=== PATIENT | male | born 1955 | race Caucasian/White ===

== ENCOUNTER 2025-04-10 09:29 | Emergency (ER) | payer MEDICARE, OTHER, SELFPAY ==
--- OUTSIDE RECORDS SUMMARY | 2025-04-03 09:20 | XMS_ITS ---
Author Organization [facility] Address [address] [place] [address] Care Team Providers Care Regional [facility] Manager Name Role Phone Greg Will Primary Care Provider Allergies Allergen (clinical drug ingredient) Drug/Non Drug Allergy documented on EMR Reaction Allergy Type Onset Date Status Substance with 3-geckdto-3-methylgluta ryl-coenzyme A reductase inhibitor mechanism of action (substance) Statins Unknown Drug Allergy Active REASON FOR VISIT POSSIBLE PINCHED NERVE IN LEG Medications Medication SIG (Take, Route, Frequency, Duration) Notes Start Date End Date Status Celecoxib 200 MG Capsule 1 capsule as ne eded Orally BID; Duration: 30 days 04/03/2025 Active Vitamin D3 250 MCG (62344 UT) Capsule 1 capsule Orally Once a day Active traMADol HCl 100 MG Tablet 1 tablet as n eeded Orally every 8 hrs; Duration: 90 days 03/21/2025 Active Losartan Potassium 50 MG Tablet 1 tablet Orally Once a day; Duration: 90 days Active Clopidogrel Bisulfate 75 MG Tablet 1 tablet Orally Once a day; Duration: 90 days Active Torsemide 20 MG Tablet 1 tablet Orally O nce a day Active Carvedilol 25 MG Tablet 1 tablet with fo od Orally Twice a day Active Tamsulosin HCl 0.4 MG Capsule 1 capsule Orally Once a day Active Walker - Miscellaneous as directed; Duration: 99 days Bariatric walker with seat MIRIAN 99 months 03/11/2025 Active predniSONE 20 MG Tablet 1 tablet with fo od or milk Orally Once a day; Duration: 7 days 04/03/2025 Active Loratadine 10 MG Tablet 1 tablet Orally Once a day Active Pregabalin 150 MG Capsule 1 capsule Oral ly 3 times a day Active Jardiance 10 MG Tablet 1 tablet Orally O nce a day Active oxyCODONE-Acetaminophen 5-325 MG Tablet 1 tablet as needed Orally every 6 hrs Active tiZANidine HCl 2 MG Tablet 1 tablet at b edtime as needed Orally Every 8 hours Active Dulcolax 5 MG Tablet Delayed Release 1 tablet as needed Orally Once a day Active Aspirin 81 MG Tablet Delayed Release 1 tablet Orally Once a day Active Social History Tobacco Use: Social History Observation Description Date Details (start date - stop date) Never Smoker NA - NA Social History Tobacco Use: Social Info Question Answer Notes Tobacco Control (Standard) Tobacco use: Nonsmoker Section Notes: CIME Dep/tob - 03/11/25 Vital Signs Temperature 97.1 degrees Fahrenheit 04/03/20 25 Blood pressure systolic 140 mm Hg 04/03/20 25 Blood pressure diastolic 84 mm Hg 025 Heart Rate 88 /min 04/03/2025 Height 73 in 04/03/2025 Weight 350 lbs 04/03/2025 BMI 46.17 kg/m2 04/03/2025 Oximetry 95 % 04/03/2025 Height-cm 185.42 cm 04/03/2025 Weight-kg 158.76 kg 04/03/2025 Encounters Encounter Location Date Provider Diagnosis [facility] [address] [id number] 04/03/2025 Greg Will Low back pain M54.50 Assessments Encounter Date Diagnosis (ICD Code) Assessment Notes Treatment Notes Treatment Clinical Notes Section Notes 04/03/2025 Low back pain (ICD-10 - M54.50) Plan Of Treatment Medication Medication Name Sig Start Date Stop Date Notes Celecoxib 200 MG Capsule 1 capsule as ne eded Orally BID; Duration: 30 days 04/03/2025 predniSONE 20 MG Tablet 1 tablet with fo od or milk Orally Once a day; Duration: 7 days 04/03/2025 Next Appt Details Follow Up: as [facility], Reason: Provider Name:Greg Will, 05/21/2025 09:20:00 AM, [address], [phone], History and Physical Notes * Examination Category Sub-Category Detail Notes Category Not es Examination GENERAL APPEARANCE: Awake/alert. No appar ent distress HEART: Regular rate and rhy thm without rubs, murmurs, or gallops. PMI nondisplaced ABDOMEN: Soft, nontender, non distended with active bowel sounds X4. No HSM or masses LUNGS: Clear to auscultatio n without rales, rhonchi, wheezing, tachypnea or air hunger Progress Notes * MOIRA AMES DDOB: [birth year] (69 yo M)Acc No.[id number]:04/03/2025 Progress Notes Patient: MOIRA GALLEGOS Provider: Teetee Will MD :1955 A ge:69 Y S ex:Male Date:04/03/2025 Address:[address] [place], [place] [phone] Check Out:03:51 PM ARMED GUARD Subjective: * Chief Complaints: * P OSSIBLE PINCHED NERVE IN LEG * HPI: P atient Complaints: Patient here for follow up - fell Tuesday hit legs and head - landed on stomach - thinks he may have a pinched nerve in his Right leg - goes numb - feels like there is a heating pad on his leg at all times. This has been going on since he left [place]. * ROS: G eneral/Constitutional: Patient denies f atigue , fever , night sweats. ? H ematology: Patient denies e asy bruising , bleeding problems , recent transfusion. R espiratory: Patient denies c ough , shortness of breath , wheezing.? C ardiovascular: Patient denies c hest pain , irregular heartbeat , swelling in hands/feet. G astrointestinal: Patient denies a bdominal pain, bloating , constipation , diarrhea , heartburn , blood in stool , nausea , vomiting. G enitourinary: Patient denies p ainful urination , blood in the urine , difficulty urinating. E NT: Patient denies e ar pain , nosebleed, runny nose, s ore throat. M usculoskeletal: Patient denies a rthritis\arthralgia , back pain , joint stiffness , muscle aches. S kin: Patient denies s kin lesion(s) , rash , acne. ? N eurologic: Patient denies d izziness , fainting , headache , memory loss , seizures. P sychiatric: Patient denies a nxiety , depressed mood , difficulty sleeping , suicidal thoughts. f ollow up - leg pain. * Medical History: Sleep Apnea Hypertension Coronary Artery Disease Heart problems Dysliphdemia Statin intolerance Stroke Medical History Verified * Surgical History: stent left knee replacement right knee replacement carpal tunnel release both Ulnar release surgery R ankle Surgical History verified. * Hospitalization/Major Diagno stic Procedure: No Hospitalization Documented. Hospitalization Verified. * Family History: F ather: . M other: , hypertension, chronic obstructive pulmonary disease.?Family History Verified.. * Social History: T obacco Use: T obacco Control (Standard) T obacco use: N onsmoker S ocial History Verified. C WISAM Dep/tob - 03/11/25. * Medications: T akingVitamin D3 250 MCG (74326 UT) Capsule 1 capsule Orally Once a day Dulcolax 5 MG Tablet Delayed Release 1 tablet as needed Orally Once a day Aspirin 81 MG Tablet Delayed Release 1 tablet Orally Once a day Loratadine 10 MG Tablet 1 tablet Orally Once a day Pregabalin 150 MG Capsule 1 capsule Orally 3 times a day Jardiance 10 MG Tablet 1 tablet Orally Once a day oxyCODONE-Acetaminophen 5-325 MG Tablet 1 tablet as needed Orally every 6 hrs tiZANidine HCl 2 MG Tablet 1 tablet at bedtime as needed Orally Every 8 hours Torsemide 20 MG Tablet 1 tablet Orally Once a day Carvedilol 25 MG Tablet 1 tablet with food Orally Twice a day Tamsulosin HCl 0.4 MG Capsule 1 capsule Orally Once a day Walker - Miscellaneous as directed Bariatric walker with seat MIRIAN 99 months, Notes: Bariatric walker with seattraMADol HCl 100 MG Tablet 1 tablet as needed Orally every 8 hrs Losartan Potassium 50 MG Tablet 1 tablet Orally Once a day Clopidogrel Bisulfate 75 MG Tablet 1 tablet Orally Once a day Medication List reviewed and reconciled with the patientTaking Vitamin D3 250 MCG (22883 UT) Capsule 1 capsule Orally Once a day Taking Dulcolax 5 MG Tablet Delayed Release 1 tablet as needed Orally Once a day Taking Aspirin 81 MG Tablet Delayed Release 1 tablet Orally Once a day Taking Loratadine 10 MG Tablet 1 tablet Orally Once a day Taking Pregabalin 150 MG Capsule 1 capsule Orally 3 times a day Taking Jardiance 10 MG Tablet 1 tablet Orally Once a day Taking oxyCODONE-Acetaminophen 5-325 MG Tablet 1 tablet as needed Orally every 6 hrs Taking tiZANidine HCl 2 MG Tablet 1 tablet at bedtime as needed Orally Every 8 hours Taking Torsemide 20 MG Tablet 1 tablet Orally Once a day Taking Carvedilol 25 MG Tablet 1 tablet with food Orally Twice a day Taking Tamsulosin HCl 0.4 MG Capsule 1 capsule Orally Once a day Taking Walker - Miscellaneous as directed Bariatric walker with seat MIRIAN 99 months, Notes: Bariatric walker with seatTaking traMADol HCl 100 MG Tablet 1 tablet as needed Orally every 8 hrs Taking Losartan Potassium 50 MG Tablet 1 tablet Orally Once a day Taking Clopidogrel Bisulfate 75 MG Tablet 1 tablet Orally Once a day Medication List reviewed and reconciled with the patient * Allergies: S tatinsyesAllergies Verified. Objective: * Vitals: H t: 73 in, Wt:350lbs, Wt-k.76 kg, BMI:46.17Index, Temp:97.1F, BP:140/84mm Hg, HR:88/min, Oxygen sat %:95%, O2 Source: RA, Pain scale: 5 1-10, Ht-cm: 185.42 cm. * Examination: E xamination: GENERAL APPEARANCE: A wake/alert. No apparent distress.? HEART: R egular rate and rhythm without rubs, murmurs, or gallops. PMI nondisplaced. LUNGS: C lear to auscultation without rales, rhonchi, wheezing, tachypnea or air hunger. ABDOMEN: S oft, nontender, nondistended with active bowel sounds X4. No HSM or masses. Assessment: * Assessment: 1. L ow back pain - M54.50 (Primary) Plan: * Treatment: * Procedure Codes: 3 077F SYST BP = 140 MM HG6 [id number] DIAST BP 80-89 MM HG * Preventive Medicine: Fall Risk Assessment: F all Risk Assessment Fall Risk Assessment O ne fall without injury in the past year 03/07/25 Screenings: C ARE FOR OLDER ADULTS Function Status Assessment date 1 Tomás Kingsley OLORECTAL CANCER SCREENING: Date of last colonoscopy 06/18/2024 Date scheduled: 06/18/2024 [facility] D EPRESSION SCREENING: Date of most recent screenin T OBACCO USE SCREENING: The patient smoked: n o tobacco products V ACCINATIONS: Influenza vaccinations: h ave been completed yearly 02/2025 [place] * Follow Up: felicia byrnes Billing Information: * Visit Code: 63890 Office Visit, Est Pt., Level 4. * Procedure Codes: 3077F SYST BP = 140 MM HG6 IT. 3079F DIAST BP 80-89 MM HG. Care Plan Details* * D GUARD Sign off status: Completed true * Provider: Teetee Will MD Date: 06/03/2024 Generated for Liza newton/Rissa/Vu on: 06/10/2024 09:43 AM ARMED GUARD
--- OUTSIDE RECORDS SUMMARY | 2025-04-08 10:15 | XMS_ITS | Encounter Summary ---
Author Organization [facility] Address [address] [place] [address] Care Team Providers Care Line Prep Cook Name Role Phone Unavailable Primary Care Provider Unavailabl e Reason for Visit * Reason Comments Consult Mobitz type 2 * Eval and Treat (Routine) - Closed Specialty Diagnoses / Procedures Referred By Contcasie t Referred To Contact Advanced Heart Failure & Transplant Cardiology / Cardiology Diagnoses Mobitz type 2 second degree atrioventricular block Presence of leadless cardiac pacemaker Chronic diastolic heart failure (CMS/HCC) Procedures AR OFFICE/OUTPATIENT ESTABLISHED MOD MDM 30 MIN AR OFFICE/OUTPATIENT NEW MODERATE MDM 45 MINUTES Papo Olivares MD [address] [place] [phone] Phone: tel: fax: Hudson Kraft MD [address] [place] [phone] Phone: tel:[phone] fax:[phone] Referral ID Status Reason Start Date Expiration Date Visits Re quested Visits Authorized [id number] Closed 03/12/2025 03/12/2026 1 1 Encounter Details Date Type Department Care Team (Late st Contact Info) Description 04/08/2025 10:15 AM SPACE TECHNOLOGIST Office Visit [facility] [address] [place] [phone] Papo Olivares MD [address] [place] [phone] Hudson Kraft MD [address] [facility] [address] [place] [address] Chronic diastolic heart failure (CMS/HCC) (Primary Dx) Social History Tobacco Use Types Packs/Day Years Used Date Smoking Tobacco: Never Sex and Gender Information Value Date Recorded Sex Assigned at Not on file Legal Sex Male 11:30 AM CDT Gender Identity Not on file Sexual Orientation Not on file documented as of this encounter Last Filed Vital Signs Vital Sign Reading Time Taken Comments Blood Pressure 104/70 04/08/2025 10:07 AM SPACE TECHNOLOGIST Pulse 65 04/08/2025 10:07 AM SPACE TECHNOLOGIST Temperature - - Respiratory Rate - - Oxygen Saturation 95% 04/08/2025 10:07 AM SPACE TECHNOLOGIST Inhaled Oxygen Concentration - - Weight 156 kg (344 lb) 04/08/2025 10:07 AM SPACE TECHNOLOGIST Height 188 cm (6' 2 ) 04/08/2025 10:07 AM SPACE TECHNOLOGIST Body Mass Index 44.17 04/08/2025 10:07 AM SPACE TECHNOLOGIST documented in this encounter Progress Notes * Hudson Kraft MD - 04/08/2025 10:15 AM CST Requesting Physician: Dr. Olivares Chief Complaint/Reason for Consultation: diastolic heart failure and cardiomems History: Dejan Weeks is a 69 y.o. patient with past medical history most significant for: - Diastolic heart failure and has cardiomems in feb 2025 - Morbid obesity down from 450 lbs to 344 lbs - Heart block status post leadless pacemaker - Dyslipidemia - CVA in mar 2024 - PCI X1 in apr 2024 - GUERRERO on BIPAP and on 1.5 L oxygen at night Recently moved He was seen in [facility] Had micra pacemaker implanted Also had abnormal stress test in 2023 Had a cath in 2023 and PCI in apr 2024 Walking with a walker Has some exertional dyspnea NYHA II Gets weak in the legs Walks with a walker Has been doing well No LE edema Had right sided heart failure last year No tobacco Social alcohol No drugs Knee replacement X2 Carpel tunnel Ulner surgery Right ankle Says he needs hip replacement No past medical history on file. No past surgical history on file. Current Outpatient Medications Medication Sig Dispense Refill evolocumab (Repatha SureClick) 140 mg/mL Pen Injector Inject 140 mg by subcutaneous injection every2 weeks. aspirin (TRICIA) 81 mg Tablet Take 81 mg by mouth. bisacodyL (DULCOLAX) 5 mg Delayed Release tablet 1 tablet as needed Orally Once a day carvediloL (COREG) 25 mg tablet 25 mg 2 times daily with meals. Cholecalciferol, Vitamin D3, 250 mcg (10,000 unit) Capsule 1 Capsule. clopidogreL (PLAVIX) 75 mg Tablet Take 75 mg by mouth daily. doxazosin (CARDURA) 2 mg tablet Take 2 mg by mouth. empagliflozin (Jardiance) 10 mg tablet Take 10 mg by mouth daily. torsemide (DEMADEX) 20 mg tablet Take 20 mg by mouth daily. tiZANidine (ZANAFLEX) 2 mg Tablet 2 mg every 8 hours. tamsulosin (FLOMAX) 0.4 mg capsule 0.4 mg daily. losartan (COZAAR) 50 mg tablet Take 50 mg by mouth daily. pregabalin (LYRICA) 150 mg Capsule 150 mg every 8 hours. loratadine (CLARITIN) 10 mg tablet Take 10 mg by mouth daily. traMADoL 100 mg Tablet 100 mg. No current facility-administered medications for this visit. Allergies Allergen Reactions Atorvastatin Muscle Pain No family history on file. Social History Tobacco Use Smoking status: Never Smokeless tobacco: Not on file Substance Use Topics Alcohol use: Not on file Review of Systems: Review of systems completed. All systems negative except symptoms as noted in HPI Objective: BP 104/70 (BP Location: Left arm, Patient Position (BP): Sitting, BP Cuff Size: Large Adult) Pulse 65 Ht 6' 2 (1.88 m) Wt (!) 156 kg (344 lb) SpO2 95% BMI 44.17 kg/m?? Wt Readings from Last 3 Encounters: 04/08/25 (!) 156 kg (344 lb) 03/12/25 (!) 158.8 kg (350 lb) General appearance: NAD Skin: warm and dry Musculoskeletal: no obvious skeletal deformities Head: normocephalic, atraumatic Neck: supple, no jugular venous distension Lungs: clear to auscultation bilaterally Chest wall: no tenderness Heart: normal S1 and S2, without murmurs. Regular rhythm. Abdomen: soft Extremities: no edema Neurologic: grossly intact and non-focal Pulses: carotid pulses 2+ and symmetric. No carotid bruits. Assessment/Plan: This is a 69-year-old male patient with complex medical history including diastolic heart failure, right-sided heart failure, CAD, heart block status post Micra pacemaker, obesity, sleep apnea who ishere for evaluation and cardiac care CAD: Patient had an abnormal stress test in 2023 and subsequently had 1 stent placed in 2023 to theOM1 Mild disease in other territories Will get cath report On aspirin and Plavix and Repatha On beta-wilberto No anginal symptoms Continue current meds Diastolic heart failure: Has been treated for diastolic heart failure Has CardioMEMS in place Will set up with our heart failure clinic No evidence gross volume overload Continue current SGLT2 inhibitor and torsemide Recommend salt and fluid restriction Morbid obesity: Patient lost approximately 100 pounds Continue weight loss Continue exercise and healthy lifestyle History of right-sided heart failure : Likely related to morbid obesity and sleep apnea Had improved he suggests over time Continue weight loss Salt and fluid restriction Status post CardioMEMS for diastolic heart failure: Will set up in monitoring system Status post leadless pacemaker: Will follow-up with Dr. Olivares Preoperative risk assessment: Patient will be planned for orthopedic surgeries He appears to be compensated He has no anginal symptoms Had a stent last year Continue current meds He is moderate risk from cardiac standpoint Okay to proceed with surgery as planned Follow-up in 6 months Thank you for your consultation. Hudson Kraft MD 0:24 AM E TECHNOLOGIST E TECHNOLOGIST documented in this encounter Miscellaneous Notes * Addendum Note - Clarisa Velasco RN - 04/08/2025 10:58 AM CSTAddended by: CLARISA VELASCO on: 04/08/2025 10:58 AM Modules accepted: Orders E TECHNOLOGIST * Patient Instructions - Clarisa Velasco RN - 04/08/2025 9:58 AM CST Thank you for choosing [facility] to serve your cardiac needs. Kamilah Garcia NP, Clarisa RN and the rest of our [facility] Team seek toprovide you with the best possible care. We hope you are satisfied with your visit today. Please let us know how we can improve and better serve you on your next visit. Thank you for entrusting your care to us at [facility]. Kamilah Garcia LAST SAWYER, Clarisa folder operator number [phone], Please call with any questions or concerns. In an urgent situation thisnumber will be answered 24 hours a day. Also, you may receive a survey via text or phone call about your visit today. I encourage you to complete the survey. We would appreciate a rating of EXCELLENT for your visit today. If you do notfeel that you can give us EXCELLENT scores please let us know why so that we can better serve you in the future. Again, it was a pleasure visiting with you today. We look forward to seeing you again in the future. Central [phone] E TECHNOLOGIST documented in this encounter Plan of Treatment Upcoming Encounters Date Type Department Care Team (Late st Contact Info) Description 06/11/2025 8:00 AM SPACE TECHNOLOGIST Procedure visit [facility] [address] [place] [phone] Papo Olivares MD [address] [place] [phone] 10/02/2025 10:00 AM CDT Video Visit [facility] [address] [place] [phone] Hudson Kraft MD [address] [place] [phone] Kamilah Quintanilla FNP [address] [place] [phone] 03/25/2026 10:30 AM SPACE TECHNOLOGIST Office Visit [facility] [address] [place] [phone] Papo Olivares MD [address] [facility] [address] [place] [phone] documented as of this encounter Visit Diagnoses Diagnosis Chronic diastolic heart failure (CMS/HCC)- Primary Chronic diastolic heart failure documented in this encounter
[2025-04-10 09:32] VITALS: BP 132/86; PULSE 64; TEMP 36.7; O2SAT 95; BMI 43.6
--- OUTSIDE RECORDS SUMMARY | 2025-04-10 09:43 | XMS_ITS | Patient Health Record ---
Author Organization [facility] Address [address] [address] Care Team Providers Care White Sugar Supervisor Name Role Phone Greg Will Primary Care Provider Allergies Allergen (clinical drug ingredient) Drug/Non Drug Allergy documented on EMR Reaction Allergy Type Onset Date Status Substance with 8-acoqunm-9-methylgluta ryl-coenzyme A reductase inhibitor mechanism of action (substance) Statins Unknown Drug Allergy Active Reason For Referral Reason Gait trouble Diagnosis 1 Gait instability (R2 6.81) Referral Organization [facility] Referring Provider First Name Ash cortez Referring Provider Last Name Suman Referring Provider Speciality Internal M edicine Referred Provider GTS [facility] Referred Provider Specialty Physical The rapist General Notes Alba Owens 025 08:16:23 AM COACH CLEANER > PER FAX PT IS SCHEDULED 03/19, Alba Owens 03/19/2025 03:03:49 PM COACH CLEANER > PROGRESS NOTES IN REFERRAL FILE Referral Priority Routine Referral Appointment Date 03/19/2025 Reason Told he needs a hip replacement. Schedule in sale. Diagnosis 1 Right hip pain (M25. 551) Referring Provider First Name Ash cortez Referring Provider Last Name Suman Referring Provider Speciality Internal M edicine Referred Organization [facility] Referred Provider Khalif Goldsmith Referred Address [address] [facility],[place],[address], Referral Priority Routine Reason Told he needs a hip replacement. Schedule in [place]. Diagnosis 1 Right hip pain (M25. 551) Referral Organization [facility] Referring Provider First Name Ash cortez Referring Provider Last Name Suman Referring Provider Speciality Internal M edicine Referred Provider KHALIF GOLDSMITH Referred Provider Specialty Orthopedic S urgery General Notes MoiseFaina gaylerie 10:39:41 AM COACH CLEANER > faxed Dr Kalen Montez Suly puente Valerie 04/01/2025 01:30:56 PM COACH CLEANER > [facility] REFERRAL- NO APPT MADE YET Referral Priority Routine Medications Medication SIG (Take, Route, Frequency, Duration) Notes Start Date End Date Status Torsemide 20 MG Tablet 1 tablet Orally O nce a day Active Carvedilol 25 MG Tablet 1 tablet with fo od Orally Twice a day Active Celecoxib 200 MG Capsule 1 capsule as ne eded Orally BID; Duration: 30 days 04/03/2025 Active predniSONE 20 MG Tablet 1 tablet with fo od or milk Orally Once a day; Duration: 7 days 04/03/2025 Active Tamsulosin HCl 0.4 MG Capsule 1 capsule Orally Once a day Active Vitamin D3 250 MCG (26111 UT) Capsule 1 capsule Orally Once a day Active Walker - Miscellaneous as directed; Duration: 99 days Bariatric walker with seat MIRIAN 99 months 03/11/2025 Active Dulcolax 5 MG Tablet Delayed Release 1 tablet as needed Orally Once a day Active traMADol HCl 100 MG Tablet 1 tablet as n eeded Orally every 8 hrs; Duration: 90 days 03/21/2025 Active Aspirin 81 MG Tablet Delayed Release 1 tablet Orally Once a day Active Losartan Potassium 50 MG Tablet 1 tablet Orally Once a day; Duration: 90 days Active Loratadine 10 MG Tablet 1 tablet Orally Once a day Active Clopidogrel Bisulfate 75 MG Tablet 1 tablet Orally Once a day; Duration: 90 days Active Pregabalin 150 MG Capsule 1 capsule Oral ly 3 times a day Active Jardiance 10 MG Tablet 1 tablet Orally O nce a day Active oxyCODONE-Acetaminophen 5-325 MG Tablet 1 tablet as needed Orally every 6 hrs Active tiZANidine HCl 2 MG Tablet 1 tablet at b edtime as needed Orally Every 8 hours Active Immunizations Vaccine Route Administration Date Status Comme nts Flucelvax Trivalent, Syringe 0.5 mL, PF Unknown 03/25/2025 Administered Social History Tobacco Use: Social History Observation Description Date Details (start date - stop date) Never Smoker NA - NA Social History Depression Screening Social Info Question Answer Notes depression screening findings Findings Negative (0 -4) 03/11/25 PHQ-9 Little interest or p maryjane in doing things Not at all Feeling down, depressed, or hopeless Not at all Trouble falling or staying asleep, or sleeping t oo much More than half the days Feeling tired or having little energy More than half the days Poor appetite or overeating Not at all Feeling bad about yourself, or that you are a failure, or have let yourself or your family down Not at all Trouble concentrating on thi ngs, such as reading the newspaper or watching television Not at all Moving or speaking so slowly that other people could have noticed. Or the opposite ? being so fidgety or restless that you have been moving around a lot more than usual Not at all Thoughts that you would be b miguel off , or of hurting yourself in some way Not at all Total Score 4 Interpretation Minimal Depression Comprehensive Health Assessm ent Social Info Question Answer Notes *Social Determinants of Health Has lack of transportation kept you from medical appointments, meetings, work or from getting things needed for daily living? No Recently, have you worried t hat your food would run out before you got money to buy more? No Do you feel physically and emotionally safe wher e you currently live? Yes Are you worried about losing your housing? No Have you recently been ronny rned that your utilities would be turned off (electricity, gas, or water)? No Tobacco Use: Social Info Question Answer Notes Tobacco Control (Standard) Tobacco use: Nonsmoker Section Notes: CIME Dep/tob - 03/11/25 CIME Dep/tob - 03/11/25 CIME Dep/tob - 03/11/25 Problems Problem Type SNOMED Code ICD Code Onset Dates Problem Status W/U Status Risk Notes Problem Type 2 diabetes mellitus with other specified complication (E11.69) Active confirmed Problem Hyperlipidemia (55081311) Hyperlipidemia, unspecified (E78.5) Active confirmed Problem Arthralgia of the pelvic region and thigh (308211312) Right hip pain (M25.551) Active confirmed Problem Multi vessel coronary artery disease (515668171) CAD, multiple vessel (I25.10) Active confirmed Problem Rotator cuff arthropathy of right shoulder (14778518574988792 ) Rotator cuff arthropathy of right shoulder (M12.811) Active confirmed Problem Statin not tolerated (634921004) Statin intolerance (Z78.9) Active confirmed Problem Abnormal gait (93681568) Gait instability (R26.81) Active confirmed Problem Obstructive sleep apnea syndrome (56363788) GUERRERO treated with BiPAP (G47.33) Active confirmed Vital Signs Heart Rate 88 /min 04/03/2025 Temperature 97.1 degrees Fahrenheit 04/03/2025 Height-cm 185.42 cm 04/03/2025 Oximetry 95 % 04/03/2025 Blood pressure diastolic 84 mm Hg 04/03/2025 Weight-kg 158.76 kg 04/03/2025 Height 73 in 04/03/2025 Blood pressure systolic 140 mm Hg 04/03/2025 Weight 350 lbs 04/03/2025 BMI 46.17 kg/m2 04/03/2025 Encounters Encounter Location Date Provider Diagnosis [facility] [address] [place] [phone] 04/03/2025 Greg Will Low back pain M54.50 [facility] [address] [address] 03/25/2025 Greg Will Right hip pain M25.551 ; Rotator cuff arthropathy of right shoulder M12.811 ; Chronic constipation with overflow K59.09 ; Colon cancer screening Z12.11 and GUERRERO treated with BiPAP G47.33 [facility] [address] [place] [phone] 03/11/2025 Greg Will Hyperlipidemia, unspecified E78.5 ; Gait instability R26.81 ; Statin intolerance Z78.9 ; CAD, multiple vessel I25.10 ; GUERRERO treated with BiPAP G47.33 and Depression screen Z13.31 [facility] [address] [address] 03/18/2025 Greg Will [facility] [address] [address] 03/13/2025 Greg Will [facility] [address] [phone] 03/22/2025 Greg Will Assessments Encounter Date Diagnosis (ICD Code) Assessment Notes Treatment Notes Treatment Clinical Notes Section Notes 03/11/2025 Hyperlipidemia, unspecified (ICD-10 - E78.5) 03/25/2025 Right hip pain (ICD-10 - M25.551) 03/25/2025 Rotator cuff arthropathy of right shoulder (ICD-10 - M12.811) 03/11/2025 Gait instability (ICD-10 - R26.81) Walker Pt is in need of: Standard Walker ____ Walker with Trunk Support ____ (add documentation for trunk support) Walker with Variable Wheel Resistance ____ (add documentation of severe neurologic disorder causing restricted use of one hand) Heavy Duty Walker____ (pt must weigh 300 lbs or more) Bariatric walker with seat The patient has a mobility limitation that significantly impairs their ability to participate in one or more mobility-related activities of daily living (MRADL) in the home, examples of MRADLs are toileting, feeding, dressing, grooming and bathing. The mobility limitation prevents the patient from completing the MRADL within a reasonable time frame. The patient is able to safely use the walker The functional mobility deficit can be sufficiently resolved with use of a walker. Length of Need: 99 months Additional information if needed: Patient also needs a Bariatric shower seat 04/03/2025 Low back pain (ICD-10 - M54.50) 03/25/2025 Chronic constipation with overflow (ICD-10 - K59.09) 03/11/2025 Statin intolerance (ICD-10 - Z78.9) 03/11/2025 CAD, multiple vessel (ICD-10 - I25.10) 03/25/2025 Colon cancer screening (ICD-10 - Z12.11) 03/25/2025 GUERRERO treated with BiPAP (ICD-10 - G47.33) 03/11/2025 GUERRERO treated with BiPAP (ICD-10 - G47.33) 03/11/2025 Depression screen (ICD-10 - Z13.31) Plan Of Treatment Pending Test Test Name Order Date Colonoscopy, Average Risk Screening-G012 1 03/25/2025 Next Appt Details Provider Name:Greg Will, 05/21/2025 09:20:00 AM, [address] [place] [address], [place], [phone], Insurance Providers Payer Name Payer Address Payer Phone Subscriber Number Group Number Insured Name Patient Relationship to Insured Coverage Start Date Coverage End Date [place] [address] [address] [place] [address] [phone] [id number] MOIRA AMES Self - patient is the insured Eder Medicare Supplement [address] [address] [place] [address] [id number] MOIRA AMES Self - patient is the insured Medications Administered Medication Instructions Date of Administration Dosage Notes BUPivacaine HCl 03/25/2025 1 mL DEPO-Medrol 03/25/2025 80 mg Medical (General) History Medical History History ICD Code Sleep Apnea hypertension Coronary Artery Disease Heart problems Dysliphdemia Statin intolerance Stroke Surgical History Surgery Date(Month/Year) stent left knee replacement right knee replacement carpal tunnel release both Ulnar release surgery R ankle
--- OUTSIDE RECORDS SUMMARY | 2025-04-10 09:43 | XMS_ITS | Clinical Summary ---
Author Organization [facility] Address [address] [place] [address] Phone Care Team Providers Care Tinsel Machine Operator Name Role Phone Unavailable Primary Care Provider Unavailabl e Allergies Active Allergy Reactions Criticality Noted Date Comments Atorvastatin Muscle Pain Low 03/12/2025 Medications aspirin (TRICIA) 81 mg Tablet Take 81 mg by mouth. 5 Active bisacodyL (DULCOLAX) 5 mg Delayed Release tablet 1 tablet as needed Orally Once a day Active carvediloL (COREG) 25 mg tablet 25 mg 2 times daily with meals. Active Cholecalcifero l, Vitamin D3, 250 mcg (10,000 unit) Capsule 1 Capsule. Active clopidogreL (PLAVIX) 75 mg Tablet Take 75 mg by mouth daily. Active doxazosin (CARDURA) 2 mg tablet Take 2 mg by mouth. 5 Active torsemide (DEMADEX) 20 mg tablet Take 20 mg by mouth daily. Active tiZANidine (ZANAFLEX) 2 mg Tablet 2 mg every 8 hours. Active tamsulosin (FLOMAX) 0.4 mg capsule 0.4 mg daily. 5 Active losartan (COZAAR) 50 mg tablet Take 50 mg by mouth daily. Active pregabalin (LYRICA) 150 mg Capsule 150 mg every 8 hours. 5 Active loratadine (CLARITIN) 10 mg tablet Take 10 mg by mouth daily. Active traMADoL 100 mg Tablet 100 mg. Active empagliflozin (Jardiance) 10 mg tablet Take 1 Tablet (10 mg) by mouth daily. 90 Tablet 3 5 Active evolocumab (Repatha SureClick) 140 mg/mL Pen Injector Inject 1 mL (140 mg) by subcutaneous injection every 2 weeks. 6 mL 3 Active empagliflozin (Jardiance) 10 mg tablet Take 10 mg by mouth daily. 025 Discontin ued(Reord er) evolocumab (Repatha SureClick) 140 mg/mL Pen Injector Inject 140 mg by subcutaneous injection every 2 weeks. 025 Discontin ued(Reord er) Active Problems Problem Noted Date Diagnosed Date Chronic diastolic heart failure 03/12/2025 Presence of leadless cardiac pacemaker Mobitz type 2 second degree atrioventricular blo ck 03/11/2025 Resolved Problems Problem Noted Date Diagnosed Date Resolved Date SSS (sick sinus syndrome) 03/11/2025 Encounters Date Type Department Care Team Description 04/08/2025 10:15 AM ELECTRIC PLATER Office Visit [place] [address] [facility] [address] [place] [phone] Papo Olivares MD Oghlakian, Gerard O, MD Chronic diastolic heart failure (CMS/HCC) (Primary Dx) 04/08/2025 Telephone [place] [address] [facility] [address] [place] [phone] Hudson Kraft MD Information (CMAP/JARDIANCE and 30 day coupon has been /To this patient for Jardiance. //NW. ARCENIOA) 04/08/2025 Abstract [place] [address] [place] [phone] Provider, Abstract 03/20/2025 Results Follow-Up [place] [address] [facility] [address] [place] [phone] Papo Olivares MD PACER PROGRAM/EVAL SINGLE LEAD 03/19/2025 External Device Data STL ABSTRACTION Provider, Abstract 03/19/2025 External Device Data STL ABSTRACTION Provider, Abstract 03/13/2025 External Device Data STL ABSTRACTION Provider, Abstract 03/13/2025 Abstract [facility] [address] [place] [phone] Provider, Abstract 03/13/2025 Telephone [facility] [address] [place] [phone] Papo Olivares MD [facility] Set up 03/12/2025 1:15 PM CDT Procedure visit [place] [address] [place] [phone] Papo Olivares MD Chronic diastolic heart failure (CMS/HCC) (Primary Dx); Mobitz type 2 second degree atrioventricular block 03/12/2025 1:00 PM CDT Office Visit [place] [address] [place] [phone] Papo Olivares MD Mobitz type 2 second degree atrioventricular block (Primary Dx); Presence of leadless cardiac pacemaker; Chronic diastolic heart failure (CMS/HCC) 03/07/2025 Abstract [facility] [address] [place] [phone] Marce Davis RN 03/07/2025 Orders Only [place] [address] [place] [phone] Papo Olivares MD Referral of patient (Primary Dx) 03/06/2025 External Device Data STL ABSTRACTION Provider, Abstract 03/06/2025 External Device Data STL ABSTRACTION Provider, Abstract 03/05/2025 External Device Data STL ABSTRACTION Provider, Abstract 02/27/2025 Telephone [place] [address] [place] [phone] Papo Olivares MD Question 02/25/2025 Abstract [place] [address] [place] [phone] Geo Edward MD from Last 3 Months Social History Tobacco Use Types Packs/Day Years Used Date Smoking Tobacco: Never Tobacco Cessation:Counseling Given: Not Answered Sex and Gender Information Value Date Recorded Sex Assigned at Not on file Legal Sex Male 11:30 AM CDT Gender Identity Not on file Sexual Orientation Not on file Last Filed Vital Signs Vital Sign Reading Time Taken Comments Blood Pressure 104/70 04/08/2025 10:07 AM ELECTRIC PLATER Pulse 65 04/08/2025 10:07 AM ELECTRIC PLATER Temperature - - Respiratory Rate - - Oxygen Saturation 95% 04/08/2025 10:07 AM ELECTRIC PLATER Inhaled Oxygen Concentration - - Weight 156 kg (344 lb) 04/08/2025 10:07 AM ELECTRIC PLATER Height 188 cm (6' 2 ) 04/08/2025 10:07 AM ELECTRIC PLATER Body Mass Index 44.17 04/08/2025 10:07 AM ELECTRIC PLATER Plan of Treatment Upcoming Encounters Date Type Department Care Team (Late st Contact Info) Description 06/11/2025 8:00 AM ELECTRIC PLATER Procedure visit [place] [address] [place] [phone] Papo Olivares MD [address] [place] [phone] 10/02/2025 10:00 AM CDT Video Visit [facility] [address] [place] [phone] Hudson Kraft MD [address] [place] [phone] Kamilah Quintanilla, DIRECTOR OF STUDENT AFFAIRS [address] [place] [phone] 03/25/2026 10:30 AM ELECTRIC PLATER Office Visit [facility] [address] [place] [phone] Papo Olivares MD [address] [place] [phone] Health Maintenance Due Date Last Done Comments DIABETES ANNUAL FOOT EXAM 1971 DIABETES ANNUAL RETINAL EXAM 1971 DIABETES HBA1C Q 6 MONTHS 1971 DIABETES MICROALBUMIN ANNUAL SCREEN 1971 LDL CHOLESTEROL ANNUAL 1971 DTAP/TDAP/TD VACCINES (1 - Tdap) 1972 PNEUMOCOCCAL VACCINE 50+ YEARS (1 of 2 - PCV) 05/24/18 73 COLORECTAL SCREENING 1998 Colorectal Cancer Screening 1998 FIT-DNA Q 3 years 1998 FIT/FOBT Q 1 year 1998 Flex Sig/CT Colonography Q 5 years 1998 RSV VACCINE (60+ or ) (1 - Risk 50-74 years 1-dose series) 2003 ZOSTER VACCINE (1 of 2) 2003 INFLUENZA VACCINE Completed 03/25/2025 Procedures Procedure Name Priority Date/Time Associated Diagnosis Comments GA PRGRMG DEV EVAL 1 LEAD PM/LDLS PM 1 CAR CHMBR IP Routine 03/20/2025 1:47 PM ELECTRIC PLATER Chronic diastolic heart failure (CMS/HCC) Mobitz type 2 second degree atrioventricular block GA ECG ROUTINE ECG W/LEAST 12 LDS W/I&R Routine 03/12/2025 1:22 PM CDT Referral of patient from Last 3 Months Results * GA PRGRMG DEV EVAL 1 LEAD PM/LDLS PM 1 CAR CHMBR IP (03/20/2025 1:47 PM ELECTRIC PLATER) Narrative [facility] - 03/20/2025 1:47 PM ELECTRIC PLATER Mercedes Olmedo 03/20/2025 1:48 PM Office Device Check By Vendor Chair Inspector Date of Procedure: March 12, 2025 Electrical Timing Device Calibrator: [employer] Comments: Office check by [employer] sales representative girls' apparel in conjunction w/ EP office visit. Interrogation reviewed by provider. Please see scan for details. Procedure Note Mercedes Olmedo - 03/20/2025 1:47 PM CST Office Device Check By Vendor Chair Inspector Date of Procedure: March 12, 2025 Electrical Timing Device Calibrator: Medtronic Comments: Office check by [employer] sales representative girls' apparel in conjunction w/ EPoffice visit. Interrogation reviewed by provider. Please see scan for details. Papo Olivares MD CARDIAC SERVICES ORDERABLES Fi nal Result Performing Organization Address [facility] Co de Phone Number [facility] [address] [facility] [address] * GA ECG ROUTINE ECG W/LEAST 12 LDS W/I&R (03/12/2025 1:22 PM CDT) Narrative [facility] - 03/12/2025 1:22 PM CDT Papo Olivares MD 03/12/2025 1:57 PM My interpretation: sinus rhythm, 1st degree AVB, GA 222 ms, QRS 92 ms, QTc 421 ms, HR 68 bpm. Procedure Note Papo Olivares MD - 03/12/2025 1:22 PM CDT My interpretation: sinus rhythm, 1st degree AVB, GA 222 ms, QRS 92 ms, EMm211 ms, HR 68 bpm. Papo Olivares MD ECG ORDERABLES Final Result Performing Organization Address [facility] Co de Phone Number [facility] CLIA [id number] [address] [facility] [address] [place] [address], [place] [phone] from Last 3 Months Insurance MEDICARE PART A AND B [facility]
--- OUTSIDE RECORDS SUMMARY | 2025-04-10 09:43 | XMS_ITS | Encounter Summary ---
Author Organization [facility] Address [address] [place] [address] Care Team Providers Care Market News Reporter Name Role Phone Unavailable Primary Care Provider Unavailabl e Reason for Visit * Reason Onset Date Comments Information 04/08/2025 CMAP/JARDIANCE a nd 30 day coupon has been To this patient for Jardiance. NW. CRONIN Encounter Details Date Type Department Care Team (Late st Contact Info) Description 04/08/2025 Telephone [facility] [address] [facility] [address] [place] [phone] Hudson Kraft MD [address] [facility] [address] [place] [phone] Information (CMAP/JARDIANCE and 30 day coupon has been /To this patient for Jardiance. //NW. CRONIN) Social History Tobacco Use Types Packs/Day Years Used Date Smoking Tobacco: Never Sex and Gender Information Value Date Recorded Sex Assigned at Not on file Legal Sex Male 11:30 AM CDT Gender Identity Not on file Sexual Orientation Not on file documented as of this encounter Miscellaneous Notes * Telephone Encounter - Maria Elena England RMA - 04/08/2025 1:47 PM CST This patient already goes through [facility] for his Repatha, he will need to re-enroll. CMAP packet for Jardiance will be mailed out to this patient. NW. CRONIN FACTURING WEAVER * Telephone Encounter - Maria Elena England MEHRDAD - 04/08/2025 1:47 PM CST ----- Message from Nurse Daysi Younger sent at 04/08/2025 11:02 AM MANUFACTURING WEAVER ----- Regarding: Repatha and jardiance This is the patient we discussed in clinic, needing help with the namita for jardiance and repatha. Thank you FACTURING WEAVER documented in this encounter Plan of Treatment Upcoming Encounters Date Type Department Care Team (Late st Contact Info) Description 06/11/2025 8:00 AM MANUFACTURING WEAVER Procedure visit [facility] [address] [place] [phone] Papo Olivares MD [address] [place] [phone] 10/02/2025 10:00 AM CDT Video Visit [facility] [address] [place] [phone] Hudson Kraft MD [address] [place] [phone] Kamilah Quintanilla FNP [address] [place] [phone] 03/25/2026 10:30 AM MANUFACTURING WEAVER Office Visit [facility] [address] [place] [phone] Papo Olivares MD [address] [place] [phone] documented as of this encounter Visit Diagnoses Not on filedocumented in this encounter
--- OUTSIDE RECORDS SUMMARY | 2025-04-10 09:44 | XMS_ITS | Encounter Summary ---
Author Organization [facility] Address [address] [place] [address] Care Team Providers Care Safety Admin Assistant Name Role Phone Unavailable Primary Care Provider Unavailabl e Encounter Details Date Type Department Care Team (Late st Contact Info) Description 03/07/2025 Abstract [facility] [address] [place] [address] Marce Davis RN [address] [place] [address] Social History Tobacco Use Types Packs/Day Years Used Date Smoking Tobacco: Never Assessed Sex and Gender Information Value Date Recorded Sex Assigned at Not on file Legal Sex Male 11:30 AM CDT Gender Identity Not on file Sexual Orientation Not on file documented as of this encounter Plan of Treatment Upcoming Encounters Date Type Department Care Team (Late st Contact Info) Description 06/11/2025 8:00 AM RAILROAD TRACK REPAIR SUPERVISOR Procedure visit [facility] [address] [place] [address] Papo Olivares MD [address] [place] [address] 10/02/2025 10:00 AM CDT Video Visit [facility] [address] [place] [address] Hudson Kraft MD [address] [place] [address] Kamilah Quintanilla FNP [address] [place] [address] 03/25/2026 10:30 AM RAILROAD TRACK REPAIR SUPERVISOR Office Visit [facility] [address] [place] [phone] Papo Olivares MD [address] [place] [phone] documented as of this encounter Visit Diagnoses Not on filedocumented in this encounter
--- OUTSIDE RECORDS SUMMARY | 2025-04-10 09:44 | XMS_ITS | Encounter Summary ---
Author Organization [facility] Address [address] [place] [address] Care Team Providers Care Java Technical Architect Name Role Phone Unavailable Primary Care Provider Unavailabl e Encounter Details Date Type Department Care Team (Late st Contact Info) Description 04/08/2025 Abstract [facility] [address] [place] [phone] Provider, Abstract NO ADDRESS ON FILE Social History Tobacco Use Types Packs/Day Years [...] st Contact Info) Description 06/11/2025 8:00 AM MANAGER MANAGING Procedure visit [place] [id number] [place] [phone] Papo Olivares MD [address] [place] [phone] 10/02/2025 10:00 AM CDT Video Visit [facility] [address] [place] [phone] Hudson Kraft MD [address] [place] [phone] Kamilah Quintanilla, LUKE [address] [place] [phone] 03/25/2026 10:30 AM MANAGER MANAGING Office Visit [facility] [address] [place] [phone] Papo Olivares MD [address] [place] [phone] documented as of this encounter Procedures Procedure Name Priority Date/Time Associated Diagnosis Comments CL LT HEART CATHETERIZATION Routine 04/10/2024 ECHO COMPLETE Routine 03/20/2024 NM MYOCARD PERF IMAG SPECT SINGL Routine 03/20/2024 documented in this encounter Results * CL LT HEART CATHETERIZATION (04/10/2024) EJECTION FRACTION us Abstract Provider FLUOROSCOPY ORDERABLES Final R esult * NM MYOCARD PERF IMAG SPECT SINGL (03/20/2024) EJECTION FRACTION SP [employer] [facility] Risk Stratification [facility] us Abstract Provider NM ORDERABLES Final Result [facility] CLIA [id number] [address] [place] [id number], [place] [phone] * ECHO COMPLETE (03/20/2024) EJECTION FRACTION 50-55 50 - 65 % us Abstract Provider ECHO ORDERABLES Final Result documented in this encounter Visit Diagnoses Not on filedocumented in this encounter
--- NOTE | 2025-04-10 09:45 | XRR_ITS ---
PROCEDURE INFORMATION: Exam: XR Right Shoulder Exam date and time: 04/10/2025 9:47 AM Age: 69 years old Clinical indication: Pain; Shoulder; Right; Fall; Additional info: Fall, pain TECHNIQUE: Imaging protocol: Radiologic exam of the right shoulder. Views: 2 or more views. COMPARISON: No relevant prior studies available. FINDINGS: Bones/joints: There is anterior dislocation of the humeral head. No definitive fracture is appreciated. There is a mild acromioclavicular joint degenerative osteoarthritis. Probable old posterior 8th right-sided healed rib fracture is present. Soft tissues: Normal. XR/XR shoulder RT min 2V* [id number] IMPRESSION: Complete anterior dislocation of the humeral head.
--- NOTE | 2025-04-10 09:47 | W.ED.EXTPRO ---
HPI - Extremity Problem General: Chief complaint: Extremity Injury, Upper Stated complaint: fell-pain in right shoulder Time Seen by Provider: 04/10/25 09:45 History of Present Illness: 69-year-old man with a history of morbid obesity, hypertension, coronary artery disease on Plavix who presents emergency room with right shoulder pain. He says he had a fall yesterday and fell onto his right side. He thought he had a rotator cuff tear and was coming to the emergency room today to have it checked out and as he was getting in the car he feels like he dislocated that same shoulder trying to get himself into the car. No other injuries. No head injury. No altered mental status. No focal motor deficits. No chest pain. Related Data Home Medications ?Medication ?Instructions ?Recorded ?Confirmed carvedilol 25 mg tablet 25 mg PO BID 04/10/25 04/10/25 celecoxib 200 mg capsule 200 mg PO BID PRN inflammation/pain 04/10/25 04/10/25 clopidogrel 75 mg tablet 75 mg PO DAILY 04/10/25 04/10/25 losartan 50 mg tablet 50 mg PO DAILY 04/10/25 04/10/25 prednisone 20 mg tablet 20 mg PO DAILY x7days 04/10/25 04/10/25 tamsulosin 0.4 mg capsule 0.4 mg PO DAILY 04/10/25 04/10/25 tizanidine 2 mg tablet 2 mg PO Q8H PRN Muscle Spasm 04/10/25 04/10/25 torsemide 20 mg tablet 40 mg PO DAILY 04/10/25 04/10/25 tramadol 50 mg tablet 100 mg PO Q8H PRN Pain 04/10/25 04/10/25 Previous Rx's ?Medication ?Instructions ?Recorded hydrocodone 5 mg-acetaminophen 325 1 tab PO Q8H PRN pain #14 tabs 04/10/25 mg tablet polyethylene glycol 3350 17 17 g PO DAILY #510 grams 04/10/25 gram/dose oral powder (Miralax) Allergies Allergy/AdvReac Type Severity Reaction Status Date / Time No Known Allergies Allergy Verified 04/10/25 09:41 Review of Systems Narrative: Constitutional symptoms: Negative except as documented in HPI. Skin symptoms: Negative except as documented in HPI. Eye symptoms: Negative except as documented in HPI. ENMT symptoms: Negative except as documented in HPI. Respiratory symptoms: Negative except as documented in HPI. Cardiovascular symptoms: Negative except as documented in HPI. Gastrointestinal symptoms: Negative except as documented in HPI. Genitourinary symptoms: Negative except as documented in HPI. Musculoskeletal symptoms: Negative except as documented in HPI. Neurologic symptoms: Negative except as documented in HPI. Psychiatric symptoms: Negative except as documented in HPI. Endocrine symptoms: Negative except as documented in HPI. Physical Exam Narrative: EXAM NARRATIVE: General: Alert, no acute distress. Skin: Warm, dry. Head: Normocephalic, atraumatic. Neck: Supple, trachea midline. Eye: Extraocular movements are intact. Ears, nose, mouth and throat: mucosa moist. Cardiovascular: Regular, Normal peripheral perfusion. Respiratory: Lungs are clear to auscultation, respirations are non-labored, breath sounds are equal, Symmetrical chest wall expansion. Gastrointestinal: Soft, Nontender, Non distended Musculoskeletal: Right shoulder does appear to be dislocated anteriorly. Neurological: Alert and oriented, No focal neurological deficit observed. Psychiatric: Cooperative, appropriate mood & affect. Course Vital Signs: Vital signs: Vital Signs Temperature 98.1 F 04/10/25 09:32 Pulse Rate 64 04/10/25 09:32 Blood Pressure 132/86 04/10/25 09:32 Pulse Oximetry 95 04/10/25 09:32 Oxygen Delivery Me thod Room Air 04/10/25 09:32 MDM - Extremity (Nontraumatic) Medical Decision Making Medical decision making Patient's reason for coming to the emergency room: Shoulder pain Social determinants: Patient is retired. Accompanied by his daughter. I reviewed the patient's medical record. Patient has had no previous visits to this facility. I reviewed the patient's current home meds Patient tells me he is on Plavix. Also Jardiance Alternate historians: None Differential diagnosis including but not limited to and based on the above HPI, review of systems and physical exam: In this patient with a musculoskeletal extremity traumatic injury and x-ray is being ordered to rule out fractures and dislocations. Orders placed to evaluate differential diagnosis based on the above differential, HPI and physical exam X-ray of the right shoulder: Anterior dislocation of the right shoulder. This was reviewed and interpreted by myself the emergency room physician. I also reviewed the radiology report. Procedural sedation Time: See nursing documentation Confirmed: Patient and procedure correct. Consent: Consent: The risks and benefits of monitored anesthesia care, including the risk of aspiration, nausea/vomiting and the risks of not performing the procedure, including severe pain and inability to complete the procedure, were all discussed with the patient. The alternatives of performing the procedure, including local anesthesia and IV analgesia, also discussed. The patient has a ride home available Indication: Closed reduction. Monitoring: Cardiac, blood pressure, continuous pulse oximetry. Preparation: Suction, IV access, Constant attendance, Supplemental oxygen. ASA Class: I- healthy patient. No significant family history of sedation complications See ER physician note for summary of the patient's present medication list and for drug allergy and intolerance history Physical exam: Airway: appears normal, Heart: regular rate and rhythm, Breath sounds: equal. Pre sedation vital signs: See nurse's notes. Procedural sedation: 70 mg IV propofol. . Post sedation vital signs: See nurse's notes. Patient tolerated: Well. Complications: The patient was recovered from the sedation without complication or incident. Post sedation condition: Patient returned to pre-sedation level of awareness. The monitoring was discontinued at this time. Performed by: Self. Notes: Pt attended by independent trained observer time of sedation was 15 minutes. . Fracuture / Dislocation procedure Time: See nursing documentation Confirmed correct: Patient, procedure, sight. Consent: Patient Indication: Dislocation Location: Left shoulder Pre procedure exam: Sensory intact, Procedural sedation: (repeat): IV propofol 70 mg Monitoring: Cardiac, blood pressure and pulse oximiter Technique: Supination and extension Post-procedure exam: _ alignment improved, circulatory neuro intact. Immobilization: Sling Patient tolerated: Well Complications: None Performed by (rpt): Self Notes: Procedure time: Postreduction x-ray of the shoulder: Good alignment. No fractures. This was reviewed and interpreted by myself the emergency room physician. I also reviewed the radiology report. Assessment of risk: Level of risk: Hospitalization considerations: Reexamination: Patient feels much better. His shoulders back in place. He is now awake alert and oriented. He is ready to go home. Assessment and plan: Shoulder dislocation ?Sedation and reduction in the emergency room - Discharged home - Discussed plan with patient. Answered any questions. - Evaluation and treatment of this problem were appropriate in the emergency setting. Lab Data Radiology Impressions Shoulder X-Ray 04/10/25 10:50 IMPRESSION: 1. Successful reduction of the humeral head 2. Mild glenohumeral and acromioclavicular joint degenerative osteoarthritis 3. Cardiomegaly If pain persists or if there is high clinical concern for fracture, followup MRI. All radiology interpretation(s) finalized by discharge Discharge Plan Discharge Patient Disposition: Home Clinical Impression: Shoulder dislocation, Rotator cuff injury Condition: Stable Prescriptions: New hydrocodone-acetaminophen 5-325 mg tablet 1 tab PO Q8H PRN (Reason: pain) Qty: 14 0RF Rx Instructions: Take 1/2 to 1 tab every 8 hours as needed for pain polyethylene glycol 3350 [Miralax] 17 gram/dose powder 17 g PO DAILY Qty: 510 0RF Rx Instructions: Take 1 scoop daily while taking pain medications. No Action losartan 50 mg tablet 50 mg PO DAILY celecoxib 200 mg capsule 200 mg PO BID PRN (Reason: inflammation/pain) carvedilol 25 mg tablet 25 mg PO BID torsemide 20 mg tablet 40 mg PO DAILY tizanidine 2 mg tablet 2 mg PO Q8H PRN (Reason: Muscle Spasm) prednisone 20 mg tablet 20 mg PO DAILY clopidogrel 75 mg tablet 75 mg PO DAILY tramadol 50 mg tablet 100 mg PO Q8H PRN (Reason: Pain) tamsulosin 0.4 mg capsule 0.4 mg PO DAILY Discharge Orders: Discharge ED (Routine); Ordered 04/10/25 Ordered By: Kaylene Schafer Referrals: Ran Palacios DO [Physician, Orthopedics] - 4-7 days Referral Note: Please call for an appointment if you do not hear from the clinic. Discharge Diet: Usual diet Discharge Activity: Limit activity as instructed Patient Instructions: Shoulder Dislocation (ED), How to Use a Sling (ED), Closed Reduction (ED), Opioid Safety, Pain Management, Patient Portal & Jane Instructions Activity Restrictions/Additional Instructions: Thank you for choosing [facility] for your healthcare needs today. You have been screened and evaluated and felt safe for discharge. Health conditions do change or evolve sometimes and as such it is important that you follow up with your Primary Doctor to be re checked, 3-5 days is a general good time frame for follow up. You are always welcome to return to the ED for re assessment if your symptoms are worsening or you have new concerns Print Language: Malay Coding Level of Care Code ED Chairperson Anesthesiology for [facility] Burdick
[2025-04-10] MEDS: ondansetron 2 mg/ML SDV 2 mL 4 MG IVP (10:48)
--- NOTE | 2025-04-10 10:50 | XRR_ITS ---
PROCEDURE INFORMATION: Exam: XR Right Shoulder Exam date and time: 04/10/2025 10:50 AM Age: 69 years old Clinical indication: Pain; Right; RT shoulder; Additional info: Post reduction TECHNIQUE: Imaging protocol: Radiologic exam of the right shoulder. Views: 2 or more views. COMPARISON: CR XR shoulder RT min 2V* [id number] 04/10/2025 9:47 AM FINDINGS: Bones/joints: There has been interval reduction of the humeral head. It is now located. No definite fracture is appreciated. There is mild glenohumeral and acromioclavicular joint degenerative osteoarthropathy with marginal osteophytosis. Heart/Mediastinum: There is cardiomegaly partially visualized. Soft tissues: Normal. XR/XR shoulder RT min 2V* [id number] IMPRESSION: 1. Successful reduction of the humeral head 2. Mild glenohumeral and acromioclavicular joint degenerative osteoarthritis 3. Cardiomegaly If pain persists or if there is high clinical concern for fracture, followup MRI.
[2025-04-10] MEDS: propofol 10 mg/mL SDV 20 mL 70 MG IVP (11:00)
[2025-04-10 11:39] VITALS: BP 129/68; PULSE 72; O2SAT 98
--- NOTE | 2025-04-11 07:26 | DCPLANNER ---
messaged ortho for er f/u
== END 2025-04-10 11:40 | disposition home or self-care (01) ==
PROVIDERS: Emergency Provider Emergency Medicine
DX: S43.005A Unspecified dislocation of left shoulder joint, initial encounter (principal); S46.001A Unspecified injury of muscle(s) and tendon(s) of the rotator cuff of right shoulder, initial encounter; W19.XXXA Unspecified fall, initial encounter; Z79.02 Long term (current) use of antithrombotics/antiplatelets
CPT/HCPCS: 23650; 73030; 96374; 99152; 99285; A4565; J2405; J2704

== ENCOUNTER 2025-04-15 04:03 | Emergency (ER) | payer MEDICARE, OTHER, SELFPAY ==
--- NOTE | 2025-04-15 04:12 | XRR_ITS ---
PROCEDURE INFORMATION: Exam: XR Right Shoulder Exam date and time: 04/15/2025 4:14 AM Age: 69 years old Clinical indication: Pain; Right; Patient felt RT shoulder dislocate attempting to get out of bed. Patient sustained shoulder dislocation on 04/10/2025. ; Additional info: Dislocated Tuesday TECHNIQUE: Imaging protocol: Radiologic exam of the right shoulder. Views: 2 or more views. COMPARISON: CR XR shoulder RT min 2V* [id number] 04/10/2025 10:50 AM FINDINGS: Bones/joints: Acute anteroinferior glenohumeral dislocation. No acute fracture visualized. Moderate acromioclavicular osteoarthritis. Soft tissues: Normal. XR/XR shoulder RT min 2V* [id number] IMPRESSION: Acute anteroinferior glenohumeral dislocation.
[2025-04-15 04:16] VITALS: BMI 44.9
[2025-04-15] MEDS: ondansetron 2 mg/ML SDV 2 mL 4 MG IVP (04:59)
[2025-04-15] MEDS: HYDROmorphone 0.5 MG/0.5 ML INJ 1 MG IM (04:59)
--- NOTE | 2025-04-15 05:13 | XRR_ITS ---
PROCEDURE INFORMATION: Exam: XR Right Shoulder Exam date and time: 04/15/2025 6:02 AM Age: 69 years old Clinical indication: Injury or trauma; Other: Post reduction of dislocation; Right; Check S/P reduction of RT shoulder dislocation TECHNIQUE: Imaging protocol: Radiologic exam of the right shoulder. Views: 2 or more views. COMPARISON: CR (CHEST, ) 04/15/2025 4:14 AM FINDINGS: Bones/joints: Interval reduction of glenohumeral dislocation. Normal alignment. No acute fracture visualized. Moderate acromioclavicular osteoarthritis. Soft tissues: Normal. XR/XR shoulder RT min 2V* [id number] IMPRESSION: Interval reduction of glenohumeral dislocation.
[2025-04-15 05:19] VITALS: BP 181/96; PULSE 64; O2SAT 96
[2025-04-15] MEDS: propofol 10 mg/mL SDV 20 mL 70 MG IVP (06:14)
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
[2025-04-15 06:19] VITALS: PULSE 69; O2SAT 99
== END 2025-04-15 07:01 | disposition home or self-care (01) ==
PROVIDERS: Emergency Provider Emergency Medicine
DX: S43.034A Inferior dislocation of right humerus, initial encounter (principal); X58.XXXA Exposure to other specified factors, initial encounter; Z79.02 Long term (current) use of antithrombotics/antiplatelets; I10 Essential (primary) hypertension; I25.10 Atherosclerotic heart disease of native coronary artery without angina pectoris
CPT/HCPCS: 23650; 73030; 96374; 99152; 99285; J1171; J2405; J2704; J7040

== ENCOUNTER → 2025-04-29 10:44 | Outpatient (BNVA) | payer MEDICARE, OTHER, SELFPAY | PROVIDERS: PCP Internal Medicine; Visit Provider Orthopaedic Surgery | DX: S43.004A Unspecified dislocation of right shoulder joint, initial encounter (principal); X58.XXXA Exposure to other specified factors, initial encounter | CPT/HCPCS: 73030; 99204 ==